=== PATIENT | female | born 1980 | race African-American/Black ===

== ENCOUNTER 2018-03-30 20:36 | Emergency (ER) | payer OTHER | END 2018-03-30 22:04 | disposition home or self-care (01) | LOC: E/R 20:36 | DX: J20.9 Acute bronchitis, unspecified (principal); J32.9 Chronic sinusitis, unspecified | CPT/HCPCS: 71045; 99284-25 ==

== ENCOUNTER 2018-06-08 20:22 | Emergency (ER) | payer OTHER ==
[2018-06-09] MEDS: KETOROLAC 30 MG INJ IM (00:12)
== END 2018-06-09 01:20 | disposition home or self-care (01) ==
LOC: FTE 06-09 01:20
DX: M25.572 Pain in left ankle and joints of left foot (principal)
CPT/HCPCS: 73590; 73610; 73630-LT; 81025; 96372; 99284-25

== ENCOUNTER 2018-10-01 10:37 | Emergency (ER) | payer OTHER ==
[2018-10-01] MEDS: IBUPROFEN 600 MG TAB PO (10:55)
[2018-10-01] MEDS: PHENAZOPYRIDINE 100 MG TAB PO (10:56)
[2018-10-01 10:57] LABS: URINE BLOOD (Dip) POC 3+ (NEGATIVE); URINE GLUCOSE (Dip) POC Negative (NEGATIVE); URINE KETONES (Dip) POC Negative (NEGATIVE); URINE LEUKOCYTE EST (Dip) POC 3+ (NEGATIVE); URINE NITRITE (Dip) POC Negative (NEGATIVE); URINE TOTAL PROTEIN POC 2+ (NEGATIVE)
[2018-10-01] MEDS: CEPHALEXIN 500 MG CAP PO (11:18)
== END 2018-10-01 11:26 | disposition home or self-care (01) ==
LOC: FTE 10:37
DX: N30.01 Acute cystitis with hematuria (principal); F17.210 Nicotine dependence, cigarettes, uncomplicated
CPT/HCPCS: 81003; 81025; 87591; 99283